=== PATIENT | female | born 1925 | race Caucasian/White ===

== ENCOUNTER 2017-03-03 08:25 | Observation (INO) | payer MEDICARE, BC ==
[~2017-03-03] VITALS: Ht 154.9 cm; Wt 62.3 kg
--- NOTE | ~2017-03-03 | HP ---
[facility] AGE: 89 Y [address] ROOM: [place] [address] LOCATION: GPCU ADMIT DATE: 03/03/2017 History & Physical DISCHARGE DATE: FAMILY PHYSICIAN: Zuleima Lentz MD ATTENDING PHYSICIAN: Zuleima Lentz DATE OF SERVICE: CHIEF COMPLAINT: Chest pain. HISTORY OF PRESENT ILLNESS: The patient is an 89-year-old female who presented to the emergency room with chest pain. She reports it actually started yesterday afternoon and resolved. Then, it awoke her at 1 o'clock this morning. The pain this morning was very sharp and in the center of her chest. She denies any dyspnea, diaphoresis, or pallor. Her daughter brought her to the emergency room. She is hypertensive in the ER, initial blood pressure 195/100. She is rating her pain a 7/10. Nitroglycerin drip was started and her pain did improve down to a 3/10. Now that she is up on the floor, her pain has resolved. She denies any fevers, chills, or productive cough. She has recently started on Zyrtec which has significantly helped dry cough, postnasal drainage, and runny nose that she was experiencing due to allergies. She was just diagnosed with a UTI about a week and half ago and just took her last dose of antibiotics last evening. She has no cardiac history other than a thoracic aortic aneurysm, that was diagnosed in 2013 and has been followed with a CT scan that has been stable. REVIEW OF SYSTEMS: She denies fevers or chills. Denies cough, sore throat, or headache. She has had chest pain. Denies dyspnea. Denies heart palpitations. Denies abdominal pain, nausea, vomiting, or diarrhea. PAST MEDICAL HISTORY: 1. Bilateral deafness. 2. Thoracic aortic aneurysm that has been stable since 2014, at 5 cm. 3. GERD. 4. Generalized osteoarthritis. 5. Hypothyroidism. 6. Osteoporosis. 7. Peripheral vascular disease. PAST SURGICAL HISTORY: [facility]: [facility] AGE: 89 Y [address] ROOM: [place] [address] LOCATION: GPCU ADMIT DATE: 03/03/2017 History & Physical DISCHARGE DATE: FAMILY PHYSICIAN: Zuleima Lentz MD ATTENDING PHYSICIAN: Zuleima Lentz 1. She had an adenosine stress test in 2008, that was abnormal due to a large fixed defect anteroapically, that extended slightly anteriorly, likely representing soft tissue attenuation. Ejection fraction was 76%. 2. Right ankle surgery. 3. Appendectomy. 4. Right carpal tunnel surgery. 5. Cholecystectomy, 2013. 6. Elbow surgery, 2005. 7. Hammertoe repair, 2015. 8. Complete hysterectomy. 9. Right rotator cuff repair, 2004. 10. Right thyroidectomy. 11. TKA, right-sided in February 2016. 12. Tonsillectomy. MEDICATIONS: 1. Tylenol 1500 mg p.o. q.h.s. 2. Cetirizine 10 mg p.o. daily. 3. Cranberry extract 500 mg daily. 4. [place] 5/325 one p.o. q.h.s. 5. Levothyroxine 50 mcg p.o. daily. 6. Myrbetriq 25 mg p.o. daily. 7. Prilosec 20 mg p.o. daily. 8. MiraLax powder 17 g p.o. b.i.d. p.r.n. constipation. 9. Ultram 50 mg p.o. t.i.d. p.r.n. and 50 mg at bedtime. 10. Vitamin D 17332 units monthly. ALLERGIES: ASPIRIN. FAMILY HISTORY: Diabetes in a brother, father, and in a maternal grandmother; eye cancer in her mother; and prostate cancer in her brother. SOCIAL HISTORY: She lives with her daughter. She is deaf and her daughter signs for her. Rare alcohol use. Nonsmoker. PHYSICAL EXAMINATION: VITAL SIGNS: Please see nursing record. GENERAL: She is awake, alert, and oriented. No signs of distress. HEART: Regular rate and rhythm. No murmur heard. LUNGS: Clear to auscultation throughout. No crackles or wheezing noted. Chest wall, she has no tenderness to palpation of the chest wall. ABDOMEN: Soft, nontender, nondistended. No masses palpated. No guarding or PATIENT'S NAME: [facility] AGE: 89 Y [address] ROOM: [address] [address] LOCATION: GPCU ADMIT DATE: 03/03/2017 History & Physical DISCHARGE DATE: FAMILY PHYSICIAN: Zuleima Lentz MD ATTENDING PHYSICIAN: Zuleima Lentz rebound tenderness. Bowel sounds are auscultated. EXTREMITIES: No peripheral edema noted. LABORATORY DATA: 1. Hemoglobin 12.6, white blood cell count 9.4, and platelets 357 with a normal differential. PTT 30, PT 10, and INR 0.95. Sodium 137, potassium 4.3, chloride 102, bicarb 28, BUN 16, and creatinine 0.9. LFTs are normal. GFR 59. Magnesium 1.9. CPK 35, CK-MB 2.9, and troponin less than 0.04. 2. Chest x-ray was done, is being interpreted by Radiology, but no acute findings noted per ER physician. 3. EKG shows normal sinus rhythm with left anterior fascicular block and no acute changes. Heart rate 76. ASSESSMENT AND PLAN: 1. An 89-year-old female with no known cardiac history, presenting with chest pain that started at 1:00 a.m., that was severe and substernal. She does have a history of a thoracic aortic aneurysm that has been stable at 5 cm. Per the ER physician, CT was done and no acute changes were noted. First set of cardiac enzymes were normal. Nitroglycerin was started in the ER, and her pain has since resolved. We will have serial cardiac enzymes ordered. I have consulted Dr. Chapa for Cardiology, and he will evaluate the patient later today. 2. We will continue her other home medications. ZULEIMA LENTZ MD KB/modl /[id number] D: T: HISTORY & PHYSICAL
--- NOTE | ~2017-03-03 | ER ---
[facility] AGE[facility] 89 Y [address] ROOM: [place] [address] LOCATION: GPCU ADMIT DATE: 03/03/2017 ER/Outpatient Report DISCHARGE DATE: FAMILY PHYSICIAN: Zuleima Lentz MD ATTENDING PHYSICIAN: Zuleima Lentz CHIEF COMPLAINT: Chest pain. HISTORY OF PRESENT ILLNESS: The patient states, through her daughter who is an property management specialist as the patient speaks sign language, that she has had chest pain which is pressure and stabbing like to the central chest since midnight or 1:00 am. It is getting worse. She has never had anything like this before. She has a history of known aortic aneurysm, but that has not required any intervention at all. She has never been a smoker. The pain does radiate kind of up towards her neck and the back as well. No other acute findings or issues. PAST MEDICAL HISTORY: As documented on the record and have been reviewed by me. SOCIAL HISTORY: As documented on the record and have been reviewed by me. MEDICATIONS: As documented on the record and have been reviewed by me. ALLERGIES: DOCUMENTED ON THE RECORD AND HAVE BEEN REVIEWED BY ME. REVIEW OF SYSTEMS: All systems were reviewed and negative except as noted in the HPI. PHYSICAL EXAMINATION: VITAL SIGNS: Blood pressure was markedly elevated at 195 systolic, heart rates have been in the normal range, the respiratory rate is 16, SpO2 is in the mid 90s on room air. GENERAL: Age-appropriate female. No obvious pain or distress, sitting upright on the exam chair. NEUROLOGIC: The patient is awake and alert. GCS appears to be 15 except the patient is nonverbal, but is communicating appropriately with sign language. HEENT: Normocephalic, atraumatic. Eyes are PERRL. Oropharynx is clear. NECK: Supple. Trachea is midline. HEART: Regular rate and rhythm with no murmurs. LUNGS: Clear to auscultation bilaterally with no rhonchi, wheezes, or rales. [facility] 89 Y [address] ROOM: [place] [address] LOCATION: GPCU ADMIT DATE: 03/03/2017 ER/Outpatient Report DISCHARGE DATE: FAMILY PHYSICIAN: Zuleima Lentz MD ATTENDING PHYSICIAN: Zuleima Lentz ABDOMEN: Soft, nontender, and nondistended. No rebound or guarding. BACK: Nontender to palpation throughout. No CVA tenderness. The abdomen is normal. EXTREMITIES: Warm and well perfused. There is 2+ edema to the knees bilaterally. No obvious skin breakdown or asymmetry. LABORATORY DATA AND X-RAYS: Chest x-ray is unremarkable per my read. EKG, sinus rhythm, rate is 76 with normal intervals and left axis deviation. No signs of acute ischemia. Labs: CBC is notable for no significant abnormalities. INR is 0.95. CMS is without significant electrolyte abnormality. GFR 59. No evidence of hepatobiliary involvement. CPK of 35, CK-MB is 2.9. Troponin is below detectable threshold. IMPRESSION: 1. Chest pain, NOS, persistent. 2. Angina versus hypertensive urgency. EMERGENCY DEPARTMENT COURSE: The patient was seen and evaluated as above. Based on her symptoms, I was concerned about ACS, PE, dissection most prominently. She was started on nitroglycerin with her markedly elevated blood pressure. This did help her symptoms. She was given aspirin shortly after arrival. Based on the timeframe, 6-hour troponin, that likely rules out ACS; however, she continues to have chest discomfort that is relieved by the nitroglycerin. CT of the chest was obtained with her history of aneurysm and back pain, I had to exclude dissection, it was negative for acute chest pathology. The patient will be admitted to Dr. Lentz for further evaluation and treatment of her chest pain. MD MILLIE OSEI/stephany /[id number] d: 03/03/172021 t: 03/22/17 0851, OUTPATIENT REPORT
--- NOTE | ~2017-03-03 | ESTC ---
Cardiac Perfusion Imaging Demographics Patient Name CHELA Landis Gender Female Patient Number [id number] Race Visit Number [id number] Ethnicity Corporate ID Room Number G6312 Accession Number [id number] Height 61 inches Date of 1925 Weight 138 pounds Interpreting Physician Eduard Alvarez MD Date of study 03/04/2017 Supervising /VANDANAP Eduard Alvarez MD NM Technologist Ordering Physician Eduard Alvarez MD Stress cd technician Stress ECG Reading Eduard Alvarez MD Nurse Raghav Cardona Physician The procedure was explained in detail to the patient. Risks, complications and alternative treatments were reviewed. Written consent was obtained. Medications Reviewed with Patient prior to Procedure. Procedure Procedure Type: Nuclear Stress Test:Pharmacological, Lexiscan, Cardiolite Stress Test Procedure Start time: 03/04/2017 09:00 Indications: Chest pain. Conclusions Summary Cardiolite SPECT images demonstrate a defect involving the inferior wall and inferolateral wall on the rest images with near complete redistribution on the stress images. No evidence of inducible wall motion abnormalities involving this area. Findings most consistent with diaphragmatic attenuation. No evidence of inducible reversible defect. Normal TID ratio Gated images demonstrate normal left ventricular systolic function without inducible wall motion abnormalities. LVEF is 76% Stress Protocols Resting ECG Normal sinus rhythm Pre-stress physical exam: Heart and lung sounds normal Stress Protocol:Pharmacologic Predicted HR: 131 bpm ECG Findings Persistent sinus rhythm Arrhythmias None Symptoms Mild shortness of breath and headache Stress Interpretation Await cardiolite images Imaging Results Summed scores - Summed stress score: 9 - Summed rest score: 19 - Summed difference score: -10 Stress ejection Ejection fraction:74 % EDV :39 ml ESV :10 ml Stroke volume :29 ml LV mass :74 gr Imaging Protocols Rest Stress Isotope:Tc99m Sestamibi IV Isotope: Tc99m Sestamibi IV Isotope dose:10.6 mCi Isotope dose:32.5 mCi Date:03/04/2017 08:17 Date:03/04/2017 09:20 Technique: SPECT Technique: Gated Supine SPECT Supine IV remains in place after procedure. Scan Time:30 minutes post injection Scan Time:45-60 minutes post injection Procedure Medications - Regadenoson (Lexiscan) 0.4 mg IV over 10-15 sec. I.V. . - Aminophylline 50 mg IV I.V. 125 mg. Medical History Admission Data Admission date: 03/03/2017 Admission Time: 10:43 Hospital Status: Inpatient. Signatures dtt: Antonio Chapa (cardio) dtd: 03/04/17 0900 Physician Self Edit
--- NOTE | ~2017-03-03 | CON ---
[facility] AGE: 89 Y [address] ROOM: [place] [address] LOCATION: GPCU ADMIT DATE: 03/03/2017 Consultation DISCHARGE DATE: 03/04/2017 FAMILY PHYSICIAN: Zuleima Lentz MD ATTENDING PHYSICIAN: Zuleima Lentz REFERRING PHYSICIAN: Antonio Torres MD CONSULTATION NOTE HISTORY OF PRESENT ILLNESS: This is an 89-year-old white female with a history of a thoracic aneurysm who presents to the emergency room with complaints of chest pain located in the central chest area around 1 o'clock in the morning. The pain radiates up towards her neck and the back as well. Upon admission to the emergency room, her blood pressures were quite elevated at 195 to 100. She rated her pain at 7/10. She was initiated on a nitro infusion which did improve her pain to the point where it was totally resolved. She carries a history of a thoracic aneurysm and underwent a CT of the chest prior to admission to the floor. It showed a stable ascending thoracic aneurysm measuring 51 mm caliber without lesions or hematoma noted. She does carry a history of a dry cough and had recently started Zyrtec for postnasal drainage and runny nose. She was recently diagnosed with a urinary tract infection about a week ago and took her last dose of antibiotics. She really has no history of cardiac other than the thoracic aneurysm that was diagnosed in 2013 and is being followed by CT. Her EKG and cardiac enzymes have been negative. PAST MEDICAL HISTORY: 1. Bilateral deafness. 2. Thoracic aneurysm that has been stable since 2013. 3. Generalized arthritis. 4. Hypothyroidism. 5. Osteoporosis. 6. Peripheral vascular disease. PAST SURGICAL HISTORY: 1. Adenosine stress test in 2008. 2. Right ankle surgery. 3. Appendectomy. 4. Right carpal tunnel surgery. 5. Cholecystectomy in 2013. 6. Elbow surgery in 2005. 7. Hammertoe repair in 2015. 8. Complete hysterectomy. 9. Right shoulder cuff repair in 2004. 10. Right thyroidectomy. 11. TKA, right-side in February 2016. PATIENT'S NAME: [facility] AGE: 89 Y [address] ROOM: [place] [address] LOCATION: GPCU ADMIT DATE: 03/03/2017 Consultation DISCHARGE DATE: 03/04/2017 FAMILY PHYSICIAN: Zuleima Lentz MD ATTENDING PHYSICIAN: Zuleima Lentz 12. T and A. ALLERGIES: ASPIRIN. HOME MEDICATIONS: 1. Tylenol 1500 mg every bedtime. 2. Cetirizine 10 mg daily. 3. Cranberry extract 500 mg daily. 4. [place] 5/325 mg every bedtime. 5. Levothyroxine 50 mcg daily. 6. Myrbetriq 25 mg daily. 7. Prilosec 20 mg daily. 8. MiraLAX 17 g b.i.d. p.r.n. 9. Ultram 50 mg t.i.d. 10. Vitamin D 50,000 units monthly. FAMILY HISTORY: Mother lived to be 104. Her father from complications of a fractured neck, when he fell out of a wheelchair. Siblings all have hypertension. She has a brother with prostate cancer. Another brother with heart disease and diabetes. A sister with diabetes mellitus. REVIEW OF SYSTEMS: GENERAL: She has been in usual state of health until now. HEENT: Head; no history of headache. Eyes; no blurred vision or double vision. Ears; she is deaf, her daughter signs and she does read lips fairly easy. Nose; she has problems with chronic rhinorrhea and allergies. Mouth; no gingival bleeding. Throat; denies sore throat, hoarseness, or difficulty swallowing. GASTROINTESTINAL: Negative for nausea, vomiting, or diarrhea. No melena or hematochezia. No history of elevated liver enzymes or yellow jaundice. GENITOURINARY: Positive for dribbling and she wears depends. SKIN: She has problems with thin, frail skin. No hair, nail, or skin changes that are concerning. MUSCULOSKELETAL: No complaints of arthralgias or myalgias. NEUROLOGIC: Denies numbness or tingling or feelings of off balance. ASSESSMENT AND PLAN: 1. Chest pain atypical in nature. Her EKGs do not show any ST or T-wave changes. Her enzymes are negative, but she did receive relief with nitroglycerin. We will plan on a Lexiscan Cardiolite in the morning and further recommendations will be forthcoming. 2. Hypertension. Her blood pressures have improved with the nitroglycerin. We will continue that for now. PATIENT'S NAME: [facility] AGE: 89 Y [address] ROOM: [address] [address] LOCATION: GPCU ADMIT DATE: 03/03/2017 Consultation DISCHARGE DATE: 03/04/2017 FAMILY PHYSICIAN: Zuleima Lentz MD ATTENDING PHYSICIAN: Zuleima Lentz The assessment and plan, history of present illness are per Dr. Lillian oTrres. We would like to thank Dr. Zuleima Lentz for allowing us to participate in this patient's care. SIS TEJADA APRN FOR ANTONIO TORRES MD TGP/modl /[id number] d: 03/04/177 t: 03/24/17 0921, CONSULTATION REPORT
[~2017-03-03 08:25] MED LIST: ACETAMINOPHEN500 MG PO; ADVAIR 250-501 EACH INH; CIPRO500 MG PO; DRISDOL 5050000 UNIT PO; LASIX40 MG PO; LEVOTHROID (SY50 MCG PO; LIDODERM 5% P1 PATCH TOP; MIRALAX17 GM PO; MYRBETRIQ25 MG PO; NORCO 5-325 TA1 EACH PO; PRILOSEC20 MG PO; ROXICODONE 5MG (5 MG PO; ULTRAM50 MG PO
[2017-03-03 08:57] LABS: BASOPHIL % 0.3 %; EOSINOPHIL # 0.3 K/uL (0.0-0.5); EOSINOPHIL % 2.7 %; HEMATOCRIT 40.1 % (30.0-46.0); HEMOGLOBIN 12.6 g/dL (10.0-15.0); IMMATURE GRANULOCYTE # 0.1 K/uL (0.0-0.3); IMMATURE GRANULOCYTE % 0.5 %; LYMPHOCYTE % 32.4 %; MCH 25.7 pg (27.0-34.0); MCHC 31.4 gm/dL (32.0-36.5); MCV 81.7 fl (83.0-98.0); MONOCYTE # 0.9 K/uL (0.0-1.0); MONOCYTE % 9.7 %; NEUTROPHIL # (ANC) 5.1 K/uL (1.8-7.8); NEUTROPHIL % 54.4 %; NRBC % 0 /100WBC (0-0.00); PLATELET COUNT 357 K/uL (150-450); RBC 4.91 M/uL (3.00-5.00); RDW-CV 16.3 % (11.9-14.6); WBC 9.4 K/uL (4.0-11.0)
[2017-03-03 09:12] LABS: INR - (THERAPEUTIC) 0.95 (0.92-1.07); PTT 30 SECONDS (25-32)
[2017-03-03 09:17] LABS: ALBUMIN 3.1 gm/dL (3.5-5.0); ALK PHOS 162 IU/L (33-138); ALT 15 IU/L (12-78); ANION GAP 11.3 (10.0-19.0); AST 15 IU/L (10-40); BLOOD UREA NITROGEN 16 mg/dL (6-24); CALCIUM 8.3 mg/dL (8.5-10.5); CHLORIDE 102 mMol/L (96-110); CO2 28 mMol/L (22-32); CPK 35 IU/L (21-215); CREATININE 0.9 mg/dL (0.5-1.1); ESTIMATED GFR (MDRD EQUATION) 59; MAGNESIUM 1.9 mg/dL (1.8-2.6); POTASSIUM 4.3 mMol/L (3.7-5.1); SODIUM 137 mMol/L (135-145); TOTAL BILIRUBIN 0.3 mg/dL (0.0-1.5); TOTAL PROTEIN 6.8 g/dL (6.0-8.4)
[2017-03-03 11:09] LABS: CPK 24 IU/L (21-215)
[2017-03-03] MEDS ORDERED: ULTRAM50 MG PO ×2 (12:04)
[2017-03-03] MEDS ORDERED: ZYRTEC10 MG PO (12:05)
[2017-03-03] MEDS ORDERED: CRANBERRY500 M3 PO (12:06)
--- NOTE | 2017-03-03 12:58 | NUR ---
Patient is very please 89 yo female admitted this afternoon from the ER. patient has c/o chest pains which actually started yesterday afternoon, but she apparently thought it was just the weather or her arthritis. she awoke around 0100 this am with pain. however did not notify her daughter until around 0800. daughter then brought her to the ER for evaluation. Does have IV infusing in right forearm without erythema or edema noted at the site. Education is given as documented with daughter using sign language. patient and daughter deny questions. pneumatics on bilat calves. call light is within reach. Report is given to SHANNAN Ceballos.
[2017-03-03 16:37] LABS: CPK 27 IU/L (21-215)
--- NOTE | 2017-03-03 17:47 | NUR ---
Significant Event:ADMITTED FROM ER AT 1145 FOR COMPLAINTS OF CHEST PAIN. HAS BEEN PAIN FREE OTHER THAN SLIGHT CHEST PAIN WHEN UP TO BATHROOM THIS AFTERNOON AND HAS HAD A HEADACHE FROM NITRO DRIP. PT IS DEAF AND DAUGHTER HELPS WITH SIGN LANGUAGE. I OFFERED TO GET MARTTI FOR WHEN FAMILY IS NOT HERE AND DAUGHTER DID NOT WANT THAT. SHE STATES THAT THEY HAVE TRIED IT IN THE PAST AND IT HAS NOT WORKED.I ALSO GOT A DRY ERASE BOARD TO HELP WITH COMMUNICATION WHEN FAMILY IS NOT HERE. PT WILL NEED TO WRITE HER NAME AND DATE OF WHEN GIVING ANY MEDICATIONS OR NEEDING TO VERIFY HER IDENTITY. PT VERY CHEERFUL AND JOKES WITH STAFF. NITRO ON AT [address] TORRES JUST NOW IN TO CONSULT ON PT. Follow up:CARDIAC ENZYMES
[2017-03-03 21:49] LABS: BILIRUBIN URINE NEGATIVE (NEGATIVE); BLOOD URINE NEGATIVE /UL (NEGATIVE); COLOR URINE STRAW (YELLOW); GLUCOSE URINE NEGATIVE (NEGATIVE); KETONE URINE NEGATIVE (NEGATIVE); LEUKOCYTES URINE NEGATIVE /UL (NEGATIVE); NITRITE URINE NEGATIVE (NEGATIVE); PROTEIN URINE NEGATIVE (NEGATIVE); TURBIDITY URINE CLEAR (CLEAR); UROBILINOGEN URINE NORMAL (NORMAL)
[2017-03-03 22:21] LABS: CPK 27 IU/L (21-215)
[2017-03-04 04:36] LABS: CPK 23 IU/L (21-215)
--- NOTE | 2017-03-04 04:52 | NUR ---
A&O. Deaf. White board in room. Patient pleasant and cooperative. No c/o chest pain this shift. BP's elevated, unable to increase nitro gtt as per protocol d/t headache. notified. SBA with gait belt and walker. Voiding well. UA negative. SCDs. NPO at midnight. Stress test scheduled for today.
[2017-03-04] MEDS ORDERED: ASPIRIN LO-DOSE81 MG PO (12:49)
--- NOTE | 2017-03-04 13:20 | NUR ---
DISCHARGE SUMMARY: PT VSS. AFEBRILE. PT A&Ox3. UTILIZED WHITEBOARD IN DISHCARGE TEACHING AND THROUGHOUT PTs STAY PATIENT IS DEAF. WHEN DAUGTHER AT BEDSIDE SIGN LANGUAGE INTERPRETATION UTILIZED. CARDIAC ENZYMES NEGATIVE. STRESS DONE THIS AM, RESULTS NEGATIVE. PT ON RA AT TIME OF DISMISSAL, LUNGS CLEAR TO CLEAR/DIMINISHED. BOWELS ACTIVE. COPIOUS UOP. IV D/C AT 1245 PRIOR TO DISCHARGE. FINAL TELE STRIP. TYLENOL GIVEN X1 FOR HEADAHCE AT SHIFT CHANGE-PT NOTED RELIEF. PT WAS SBA/WALKER. PT DISCHARGED AT 1308 TO HOME WITH DAUGHTER. EDUCATION REGARDING ANGINA AND ASPIRIN WERE PROVIDED.
== END 2017-03-04 13:28 | disposition disaster alternative care site (69) ==
LOC: GMED 08:25 → GPCU 10:43
PROVIDERS: Emergency Medicine; ADMIT Family Medicine
DX: R07.89 Other chest pain (principal); I10 Essential (primary) hypertension; K21.9 Gastro-esophageal reflux disease without esophagitis; E03.9 Hypothyroidism, unspecified; I73.9 Peripheral vascular disease, unspecified; I71.2 Thoracic aortic aneurysm, without rupture; M15.9 Polyosteoarthritis, unspecified; E89.0 Postprocedural hypothyroidism; M81.0 Age-related osteoporosis without current pathological fracture; R32 Unspecified urinary incontinence; Z90.49 Acquired absence of other specified parts of digestive tract; Z88.8 Allergy status to other drugs, medicaments and biological substances; Z98.890 Other specified postprocedural states; Z79.899 Other long term (current) drug therapy
CPT/HCPCS: A9500; G0378; J0280; J2785; J7030

== ENCOUNTER → 2017-06-07 | Outpatient (CLI) | payer MEDICARE, BC ==
[~2017-06-07] MED LIST changes: +ASPIRIN LO-DOSE81 MG PO; +CRANBERRY500 M3 PO; +ZYRTEC10 MG PO
== END | disposition disaster alternative care site (69) ==
LOC: GRAD 08:46
DX: I71.4 Abdominal aortic aneurysm, without rupture (principal)